=== PATIENT | male | born 1975 | race Caucasian/White ===

== ENCOUNTER 2016-10-07 15:12 | Emergency (ER) | payer OTHER ==
--- NOTE | 2016-10-07 18:50 | REPUSA ---
CLINICAL HISTORY: Pain. COMMENTS: Real time sonography with duplex doppler of the left lower extremity was performed with attention to the major deep venous structures. Evaluation reveals the left common femoral, superficial femoral and popliteal veins to be completely compressible without intraluminal thrombus. There is normal spontaneous phasic flow and augmentation. The greater saphenous/common femoral vein junction is patent. IMPRESSION: No evidence of DVT in left lower extremity.. Thank you for your kind referral of this patient.
--- NOTE | 2016-10-07 19:17 | EDDOCDS ---
Nurse's Notes [facility] Name: Arcadio Le Age: 41 yrs Sex: Male : 1975 Arrival Date: 10/07/2016 Time: 15:12 Bed PR Private MD: [facility] - Adults Diagnosis: Pain in left lower leg;Acute upper respiratory infection, unspecified Presentation: 10/07 15:27 Presenting complaint: Patient states: tweaked his back 3 weeks ago now having pain down kpj left leg, also cold symptoms. Adult Sepsis Screening: The patient does not have new or worsening altered mentation. Patient's respiratory rate is less than 22. Systolic blood pressure is greater than 100. Patient has a qSOFA score of 0- Negative Sepsis Screen. Suicide/Homicide risk assessment- the patient denies having any suicidal and/or homicidal ideations and does not present with any other emotional, behavioral or mental health complaints. Status: Patient is not a track service worker or dependent. Transition of care: patient was not received from another setting of care. 15:27 Acuity: WHIT Level 5 [facility] 15:27 Method Of Arrival: Walkin/Carried/Asstd [facility] Triage Assessment: 15:30 General: Appears in no apparent distress, Behavior is appropriate for age. Pain: kpj Location: left leg Pain currently is 6 out of 10 on a pain scale. Pt Declines HIV testing. Neurological: Level of Consciousness is awake, alert, Oriented to person, place, time. Respiratory: Airway is patent Respiratory effort is even, unlabored, Respiratory pattern is regular, symmetrical. Respiratory: Reports cough that is non-productive. Derm: Skin is pink, warm & dry. Musculoskeletal: Reports pain in left leg Pain is 6 out of 10 on a pain scale. Historical: - Allergies: No known drug Allergies; - Home Meds: 1. Celexa 10 mg Oral tab 1 tab once daily (Last dose: 10/07/2016 10:30) - PMHx: Depression; - PSHx: cyst removed rt eye; 3 right knee surgeries; - Social history: Smoking status: Patient uses tobacco products, light tobacco smoker. No barriers to communication noted, The patient speaks fluent Angolan. - Family history: Not pertinent. - : The pt / caregiver states he / she is not on anticoagulants. Home medication list is obtained from the patient. - Exposure Risk Screening:: None identified. Screenin:14 Screening information is obtained from the patient. Fall risk: No risks identified. cz Assistance ADL's: requires no assistance with activities of daily living. Abuse/DV Screen: The patient / caregiver reports he/she is: not in a situation that causes fear, pain or injury. Nutritional screening: No deficits noted. home support is adequate. Assessment: 19:14 Reassessment: Patient appears in no apparent distress at this time. Patient states cz symptoms have improved. Vital Signs: 15:14 BP 137 / 74; Pulse 95; Resp 18 S; Temp 97.3(O); Pulse Ox 98% on R/A; Weight 123.83 kg gr2 (R); Height 5 ft. 11 in. (180.34 cm) (R); Pain 5/10; 19:11 BP 133 / 86; Pulse 76; Resp 16; Temp 98.5; Pulse Ox 95% on R/A; cz 15:14 Body Mass Index 38.08 (123.83 kg, 180.34 cm) gr2 Vitals: 15:14 Log In Time: October 07, 2016 at 15:14. gr2 ED Course: 15:13 Patient visited by Sol Del Toro. gr2 15:13 Patient moved to Waiting gr2 15:14 NO PRIMARY PHYSICIAN, . is Private Physician. gr2 15:14 [facility] is Private Physician. gr2 15:16 Patient visited by Sol Del Toro. gr2 15:16 Patient moved to Pre E gr2 15:28 Triage Initiated kp 17:06 Patient moved to Triage 1 kp 17:21 Cody Bang PA is PHCP. mo1 17:21 Jose Antonio Tucker MD is Attending Physician. mo1 17:43 Patient visited by Cody Bang PA. mo1 18:01 Patient moved to Ultrasound am17 18:04 Patient moved to Triage 1 am17 18:06 Patient moved to TR3 mdr 18:08 [facility] Payment Agreement was scanned into [employer] and attached to record. gjb 18:57 [facility] is Referral Physician. mo1 18:57 Patient moved to PR1 / 25 mdr 19:14 The patient / caregiver is instructed regarding the plan of care and ED course. cz 19:14 No IV's were initiated during this patient's visit. No procedures done that require cz assistance. Order Results: There are currently no results for this order. Outcome: 18:58 Discharge ordered by Provider. mo1 19:14 Discharge Assessment: Patient awake, alert and oriented x 3. No cognitive and/or cz functional deficits noted. Patient verbalized understanding of disposition instructions. patient administered narcotics - no. The following High Risk Discharge criteria are identified: None. Discharged to home ambulatory. Condition: stable. Discharge instructions given to patient, Instructed on discharge instructions, follow up and referral plans. Demonstrated understanding of instructions, Pt was receptive of discharge instructions/ teaching. No special radiology studies were completed. Property :Personal belongings accompany Pt. 19:16 Patient left the ED. cz Signatures: Lilia Moser, RN RN Marcial Livingston, RN RN cz Sol Del Toro gr2 Cody Bang PA PA mo1 Kylie Albert am17 Antonio Khalil PCA PCA mdr Beck, Gabriela gjb MTDD
--- NOTE | 2016-10-07 19:17 | EDDOCDS ---
Physician Documentation [facility] Name: Arcadio Le Age: 41 yrs Sex: Male : 1975 Arrival Date: 10/07/2016 Time: 15:12 Bed PR Private MD: [facility] - Adults Disposition: 10/07/16 18:58 Discharged to Home/Self Care. Impression: Pain in left lower leg, Acute upper respiratory infection, unspecified. - Condition is Stable. - Discharge Instructions: Leg Cramps, Upper Respiratory Infection, Adult. - Medication Reconciliation, Local Pharmacy Hours form. - Follow up: [facility] - Adults; When: Call to arrange an appointment; Reason: Recheck today's complaints, Continuance of care. - Problem is new. - Symptoms are unchanged. Historical: - Allergies: No known drug Allergies; - Home Meds: 1. Celexa 10 mg Oral tab 1 tab once daily (Last dose: 10/07/2016 10:30) - PMHx: Depression; - PSHx: cyst removed rt eye; 3 right knee surgeries; - Social history: Smoking status: Patient uses tobacco products, light tobacco smoker. No barriers to communication noted, The patient speaks fluent [place]. - Family history: Not pertinent. - : The pt / caregiver states he / she is not on anticoagulants. Home medication list is obtained from the patient. - Exposure Risk Screening:: None identified. Vital Signs: 10/07 15:14 BP 137 / 74; Pulse 95; Resp 18 S; Temp 97.3(O); Pulse Ox 98% on R/A; Weight 123.83 kg / gr2 273 lbs (R); Height 5 ft. 11 in. (180.34 cm) (R); Pain 5/10; 19:11 BP 133 / 86; Pulse 76; Resp 16; Temp 98.5; Pulse Ox 95% on R/A; cz 15:14 Body Mass Index 38.08 (123.83 kg, 180.34 cm) gr2 MDM: 17:45 US Lower Extremity R/O DVT Ordered. EDMS 18:06 Financial registration complete. marcia 18:08 [facility] Payment Agreement was scanned into [employer] and attached to record. alhaji Signatures: Dispatcher [employer] EDHI Lilia Moser RN RN kpj Marcial Garcia, KASANDRA RN Cody Rizvi PA PA mo1 Beck, Gabriela gjb The chart was reviewed and I authenticate all verbal orders and agree with the evaluation and treatment provided.Attachments: 18:08 [facility] Payment Agreement alhaji MTDD
--- NOTE | 2016-10-09 20:18 | EDDOCDS ---
Physician Documentation [facility] Name: Arcadio Le Age: 41 yrs Sex: Male : 1975 Arrival Date: 10/07/2016 Time: 15:12 Bed PR Private MD: [facility] - Adults Disposition: 10/07/16 18:58 Discharged to Home/Self Care. Impression: Pain in left lower leg, Acute upper respiratory infection, unspecified. - Condition is Stable. - Discharge Instructions: Leg Cramps, Upper Respiratory Infection, Adult. - Medication Reconciliation, Local Pharmacy Hours form. - Follow up: [facility] - Adults; When: Call to arrange an appointment; Reason: Recheck today's complaints, Continuance of care. - Problem is new. - Symptoms are unchanged. Historical: - Allergies: No known drug Allergies; - Home Meds: 1. Celexa 10 mg Oral tab 1 tab once daily (Last dose: 10/07/2016 10:30) - PMHx: Depression; - PSHx: cyst removed rt eye; 3 right knee surgeries; - Social history: Smoking status: Patient uses tobacco products, light tobacco smoker. No barriers to communication noted, The patient speaks fluent Croatian. - Family history: Not pertinent. - : The pt / caregiver states he / she is not on anticoagulants. Home medication list is obtained from the patient. - Exposure Risk Screening:: None identified. Vital Signs: 10/07 15:14 BP 137 / 74; Pulse 95; Resp 18 S; Temp 97.3(O); Pulse Ox 98% on R/A; Weight 123.83 kg / gr2 273 lbs (R); Height 5 ft. 11 in. (180.34 cm) (R); Pain 5/10; 19:11 BP 133 / 86; Pulse 76; Resp 16; Temp 98.5; Pulse Ox 95% on R/A; cz 15:14 Body Mass Index 38.08 (123.83 kg, 180.34 cm) gr2 MDM: 17:45 US Lower Extremity R/O DVT Ordered. EDMS 18:06 Financial registration complete. marcia 18:08 [facility] Payment Agreement was scanned into [employer] and attached to record. marcia 10/08 12:03 T-Sheet-- Draft Copy was scanned into [employer] and attached to record. gb 12:03 Radiology Report was scanned into [employer] and attached to record. gb Signatures: Dispatcher [employer] EDLilia Mitchell RN RN Marcial Livingston RN RN cz Barnhardt, Gloria, Reg Reg gb Cody Bang, MAIRA PA mo1 Chapis Lauren gjb The chart was reviewed and I authenticate all verbal orders and agree with the evaluation and treatment provided.Attachments: 10/07 18:08 [facility] Payment Agreement gjb 10/08 12:03 T-Sheet-- Draft Copy gb Chart Complete MTDD
--- NOTE | 2016-10-09 20:18 | EDDOCDS ---
Physician Documentation [facility] Name: Arcadio Le Age: 41 yrs Sex: Male : 1975 Arrival Date: 10/07/2016 Time: 15:12 Bed PR Private MD: [facility] - Adults Disposition: 10/07/16 18:58 Discharged to Home/Self Care. Impression: Pain in left lower leg, Acute upper respiratory infection, unspecified. - Condition is Stable. - Discharge Instructions: Leg Cramps, Upper Respiratory Infection, Adult. - Medication Reconciliation, Local Pharmacy Hours form. - Follow up: [facility] - Adults; When: Call to arrange an appointment; Reason: Recheck today's complaints, Continuance of care. - Problem is new. - Symptoms are unchanged. Historical: - Allergies: No known drug Allergies; - Home Meds: 1. Celexa 10 mg Oral tab 1 tab once daily (Last dose: 10/07/2016 10:30) - PMHx: Depression; - PSHx: cyst removed rt eye; 3 right knee surgeries; - Social history: Smoking status: Patient uses tobacco products, light tobacco smoker. No barriers to communication noted, The patient speaks fluent Spanish. - Family history: Not pertinent. - : The pt / caregiver states he / she is not on anticoagulants. Home medication list is obtained from the patient. - Exposure Risk Screening:: None identified. Vital Signs: 10/07 15:14 BP 137 / 74; Pulse 95; Resp 18 S; Temp 97.3(O); Pulse Ox 98% on R/A; Weight 123.83 kg / gr2 273 lbs (R); Height 5 ft. 11 in. (180.34 cm) (R); Pain 5/10; 19:11 BP 133 / 86; Pulse 76; Resp 16; Temp 98.5; Pulse Ox 95% on R/A; cz 15:14 Body Mass Index 38.08 (123.83 kg, 180.34 cm) gr2 MDM: 17:45 US Lower Extremity R/O DVT Ordered. EDMS 18:06 Financial registration complete. marcia 18:08 [facility] Payment Agreement was scanned into [employer] and attached to record. marcia 10/08 12:03 T-Sheet-- Draft Copy was scanned into [employer] and attached to record. gb 12:03 Radiology Report was scanned into [employer] and attached to record. gb Signatures: Dispatcher [employer] EDLilia Mitchell RN RN Marcial Livingston RN RN cz Barnhardt, Gloria, Reg Reg gb Cody Bang, MAIRA PA mo1 Chapis Lauren gjb The chart was reviewed and I authenticate all verbal orders and agree with the evaluation and treatment provided.Attachments: 10/07 18:08 [facility] [place] [facility] Payment Agreement gjb 10/08 12:03 T-Sheet-- Draft Copy gb Chart Complete MTDD
--- NOTE | 2016-10-09 20:18 | EDDOCDS ---
Nurse's Notes [facility] Name: Arcadio Le Age: 41 yrs Sex: Male : 1975 Arrival Date: 10/07/2016 Time: 15:12 Bed PR Private MD: [facility] - Adults Diagnosis: Pain in left lower leg;Acute upper respiratory infection, unspecified Presentation: 10/07 15:27 Presenting complaint: Patient states: tweaked his back 3 weeks ago now having pain down kpj left leg, also cold symptoms. Adult Sepsis Screening: The patient does not have new or worsening altered mentation. Patient's respiratory rate is less than 22. Systolic blood pressure is greater than 100. Patient has a qSOFA score of 0- Negative Sepsis Screen. Suicide/Homicide risk assessment- the patient denies having any suicidal and/or homicidal ideations and does not present with any other emotional, behavioral or mental health complaints. 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 Transition of care: patient was not received from another setting of care. 15:27 Acuity: WHIT Level 5 [facility] 15:27 Method Of Arrival: Walkin/Carried/Asstd [facility] Triage Assessment: 15:30 General: Appears in no apparent distress, Behavior is appropriate for age. Pain: kpj Location: left leg Pain currently is 6 out of 10 on a pain scale. Pt Declines HIV testing. Neurological: Level of Consciousness is awake, alert, Oriented to person, place, time. Respiratory: Airway is patent Respiratory effort is even, unlabored, Respiratory pattern is regular, symmetrical. Respiratory: Reports cough that is non-productive. Derm: Skin is pink, warm & dry. Musculoskeletal: Reports pain in left leg Pain is 6 out of 10 on a pain scale. Historical: - Allergies: No known drug Allergies; - Home Meds: 1. Celexa 10 mg Oral tab 1 tab once daily (Last dose: 10/07/2016 10:30) - PMHx: Depression; - PSHx: cyst removed rt eye; 3 right knee surgeries; - Social history: Smoking status: Patient uses tobacco products, light tobacco smoker. No barriers to communication noted, The patient speaks fluent Albanian. - Family history: Not pertinent. - : The pt / caregiver states he / she is not on anticoagulants. Home medication list is obtained from the patient. - Exposure Risk Screening:: None identified. Screenin:14 Screening information is obtained from the patient. Fall risk: No risks identified. cz Assistance ADL's: requires no assistance with activities of daily living. Abuse/DV Screen: The patient / caregiver reports he/she is: not in a situation that causes fear, pain or injury. Nutritional screening: No deficits noted. home support is adequate. Assessment: 19:14 Reassessment: Patient appears in no apparent distress at this time. Patient states cz symptoms have improved. Vital Signs: 15:14 BP 137 / 74; Pulse 95; Resp 18 S; Temp 97.3(O); Pulse Ox 98% on R/A; Weight 123.83 kg gr2 (R); Height 5 ft. 11 in. (180.34 cm) (R); Pain 5/10; 19:11 BP 133 / 86; Pulse 76; Resp 16; Temp 98.5; Pulse Ox 95% on R/A; cz 15:14 Body Mass Index 38.08 (123.83 kg, 180.34 cm) gr2 Vitals: 15:14 Log In Time: October 07, 2016 at 15:14. gr2 ED Course: 15:13 Patient visited by Sol Del Toro. gr2 15:13 Patient moved to Waiting gr2 15:14 NO PRIMARY PHYSICIAN, . is Private Physician. gr2 15:14 [facility] is Private Physician. gr2 15:16 Patient visited by Sol Del Toro. gr2 15:16 Patient moved to Pre E gr2 15:28 Triage Initiated kp 17:06 Patient moved to Triage 1 kp 17:21 Cody Bang PA is PHCP. mo1 17:21 Jose Antonio Tucker MD is Attending Physician. mo1 17:43 Patient visited by Cody Bang PA. mo1 18:01 Patient moved to Ultrasound am17 18:04 Patient moved to Triage 1 am17 18:06 Patient moved to TR3 mdr 18:08 [facility] Payment Agreement was scanned into [employer] and attached to record. gjb 18:57 [facility] is Referral Physician. mo1 18:57 Patient moved to PR1 / 25 mdr 19:14 The patient / caregiver is instructed regarding the plan of care and ED course. cz 19:14 No IV's were initiated during this patient's visit. No procedures done that require cz assistance. 19:17 US Lower Extremity R/O DVT Returned. EDAR 10/08 12:03 T-Sheet-- Draft Copy was scanned into [employer] and attached to record. gb 12:03 Radiology Report was scanned into [employer] and attached to record. gb Order Results: Radiology Order: US Lower Extremity R/O DVT Test: US Lower Extremity R/O DVT REASON FOR EXAMINATION: r/o DVT, left posterior thigh; ; CLINICAL HISTORY: Pain.; COMMENTS:; Real time sonography with duplex doppler of the left lower extremity was performed with attention to; the major deep venous structures.; Evaluation reveals the left common femoral, superficial femoral and popliteal veins to be completely; compressible without intraluminal thrombus. There is normal spontaneous phasic flow and augmentation.; The greater saphenous/common femoral vein junction is patent.; IMPRESSION:; No evidence of DVT in left lower extremity..; Thank you for your kind referral of this patient.; ; Outcome: 10/07 18:58 Discharge ordered by Provider. mo1 19:14 Discharge Assessment: Patient awake, alert and oriented x 3. No cognitive and/or cz functional deficits noted. Patient verbalized understanding of disposition instructions. patient administered narcotics - no. The following High Risk Discharge criteria are identified: None. Discharged to home ambulatory. Condition: stable. Discharge instructions given to patient, Instructed on discharge instructions, follow up and referral plans. Demonstrated understanding of instructions, Pt was receptive of discharge instructions/ teaching. No special radiology studies were completed. Property :Personal belongings accompany Pt. 19:16 Patient left the ED. cz Signatures: Dispatcher [employer] EDAR Lilia Moser RN RN Marcial Livingston RN RN cz Rosio Sharma, Reg Reg Sol Montalvo gr2 Cody Bang PA PA mo1 Kylie Albert am17 Antonio Khalil, RICHA PAYMENT MANAGER Chapis Lucas Chart Complete MTDD
== END 2016-10-07 19:16 | disposition home or self-care (01) ==
LOC: M ED 15:12
DX: S86.902A Unspecified injury of unspecified muscle(s) and tendon(s) at lower leg level, left leg, initial encounter (principal); X58.XXXA Exposure to other specified factors, initial encounter; Y92.89 Other specified places as the place of occurrence of the external cause; Y93.89 Activity, other specified; Y99.8 Other external cause status; J06.9 Acute upper respiratory infection, unspecified; F32.9 Major depressive disorder, single episode, unspecified; Z79.899 Other long term (current) drug therapy; F17.210 Nicotine dependence, cigarettes, uncomplicated

== ENCOUNTER → 2018-06-09 | Outpatient (REF) | payer OTHER ==
[2018-06-09 16:20] LABS: BASO # 0.1 10^3/uL (0.0-0.2); BASO % 0.8 % (0.0-1.0); EOS # 0.6 10^3/uL (0.0-0.50); EOS % 6.8 % (0.0-3.0); HEMATOCRIT 45.9 % (42.0-52.0); HEMOGLOBIN 15.3 g/dl (13.5-17.5); IMMATURE GRANULOCYTE % 0.2 % (0-3.0); LYMPH # 2.7 10^3/uL (1.5-4.5); LYMPH % 29.7 % (24.0-44.0); MEAN CORPUSCULAR HEMOGLOBIN 31.5 pg (27.0-33.0); MEAN CORPUSCULAR HGB CONC 33.3 g/dl (32.0-36.5); MEAN CORPUSCULAR VOLUME 94.6 fl (80.0-96.0); MONO # 0.8 10^3/uL (0.0-0.8); NEUTROPHILS # 4.9 10^3/uL (1.8-7.7); NEUTROPHILS % 53.5 % (36.0-66.0); PLATELET COUNT, AUTOMATED 294 10^3/uL (150-450); RED BLOOD COUNT 4.85 10^6/uL (4.30-6.10); RED CELL DISTRIBUTION WIDTH 13.4 % (11.5-14.5); WHITE BLOOD COUNT 9.1 10^3/uL (4.0-10.0)
[2018-06-09 16:43] LABS: ALBUMIN/GLOBULIN RATIO 1.21 (1.00-1.93); ALKALINE PHOSPHATASE 60 U/L (45-117); ALT/SGPT 31 U/L (12-78); ANION GAP 6 MEQ/L (8-16); AST/SGOT 15 U/L (7-37); BILIRUBIN,TOTAL 0.3 MG/DL (0.2-1.0); BLOOD UREA NITROGEN 14 MG/DL (7-18); CALCIUM LEVEL 8.5 MG/DL (8.5-10.1); CARBON DIOXIDE LEVEL 27 MEQ/L (21-32); CHLORIDE LEVEL 106 MEQ/L (98-107); CHOLESTEROL LEVEL 197 MG/DL (<200); CHOLESTEROL RISK RATIO 5.969 (<5); CREATININE FOR GFR 0.92 MG/DL (0.70-1.30); GLOMERULAR FILTRATION RATE > 60.0 (>60); GLUCOSE, FASTING 82 MG/DL (70-100); HDL CHOLESTEROL 33 MG/DL (>40); LDL CHOLESTEROL 121 MG/DL (<100); NON-HDL-C 164 MG/DL; POTASSIUM SERUM 4.7 MEQ/L (3.5-5.1); SODIUM LEVEL 139 MEQ/L (136-145); TOTAL PROTEIN 7.3 GM/DL (6.4-8.2); TRIGLYCERIDES LEVEL 214 MG/DL (<150)
== END ==
LOC: M LAB REF 15:51
DX: E78.2 Mixed hyperlipidemia (principal)
CPT/HCPCS: 84443

== ENCOUNTER → 2018-09-12 | Outpatient (CLI) | payer OTHER ==
--- NOTE | 2018-09-12 13:07 | REP ---
Soft-tissue neck x-ray: Single view. History: Difficulty swallowing. Findings: Epiglottis is normal. Retropharyngeal soft tissues are not widened. Glottic and subglottic airway are unremarkable. No significant bony abnormality is seen. Impression: Negative radiographs of the soft tissues of the neck. Electronically Signed by Bernardino Lambert MD 09/12/2018 12:59 P
== END ==
LOC: M RAD 11:16
PROVIDERS: ATTEND Physician Assistant Medical
DX: R13.10 Dysphagia, unspecified (principal)

== ENCOUNTER → 2019-07-04 | Outpatient (CLI) | payer MEDICAID, OTHER ==
[2019-07-06 00:07] LABS: Lyme Disease IgG/IgM Antibodie <0.91 ISR (0.00-0.90); Lyme Disease IgM Ab Quantitati <0.80 index (0.00-0.79)
== END ==
LOC: M LAB 12:33
PROVIDERS: ATTEND Physician Assistant
DX: M25.50 Pain in unspecified joint (principal); R51 Headache

== ENCOUNTER → 2019-07-17 | Outpatient (REF) | payer MEDICAID, OTHER ==
[2019-07-17 12:31] LABS: APPEARANCE, URINE CLEAR (CLEAR); BACTERIA, URINE AUTO NEGATIVE (NEGATIVE); BILIRUBIN, URINE AUTO NEGATIVE (NEGATIVE); BLOOD, URINE BLOOD 1+ (NEGATIVE); COLOR, URINE YELLOW (YELLOW); GLUCOSE, URINE (UA) AUTO NEGATIVE (NEGATIVE); KETONE, URINE AUTO NEGATIVE (NEGATIVE); LEUKOCYTE ESTERASE, URINE AUTO NEGATIVE (NEGATIVE); MUCUS, URINE SMALL (NEGATIVE); NITRITE, URINE AUTO NEGATIVE (NEGATIVE); PROTEIN, URINE AUTO NEGATIVE (NEGATIVE); RBC, URINE AUTO 0 /HPF (0-3); SQUAMOUS EPITHELIAL CELL UR AU 0 /HPF (0-6); UROBILINOGEN, URINE AUTO 0.2 mg/dL (0.0-2.0); WBC, URINE AUTO 1 /HPF (0-3)
[2019-07-17 18:58] LABS: BASO # 0.1 10^3/uL (0.0-0.2); EOS # 0.4 10^3/uL (0.0-0.5); HEMATOCRIT 47.9 % (42.0-52.0); HEMOGLOBIN 15.8 g/dl (13.5-17.5); LYMPH # 2.4 10^3/uL (1.5-5.0); LYMPH % 30.2 % (24.0-44.0); MEAN CORPUSCULAR HEMOGLOBIN 31.5 pg (27.0-33.0); MEAN CORPUSCULAR VOLUME 95.4 fl (80.0-96.0); MONO # 0.6 10^3/uL (0.0-0.8); MONO % 8.1 % (0.0-5.0); NEUTROPHILS # 4.3 10^3/uL (1.5-8.5); NEUTROPHILS % 55.3 % (36.0-66.0); PLATELET COUNT, AUTOMATED 302 10^3/uL (150-450); RED BLOOD COUNT 5.02 10^6/uL (4.30-6.10); WHITE BLOOD COUNT 7.8 10^3/uL (4.0-10.0)
[2019-07-17 19:06] LABS: ALBUMIN 3.9 GM/DL (3.2-5.2); ALT/SGPT 49 U/L (12-78); BILIRUBIN,TOTAL 0.4 MG/DL (0.2-1.0); BLOOD UREA NITROGEN 10 MG/DL (7-18); CARBON DIOXIDE LEVEL 29 MEQ/L (21-32); CHLORIDE LEVEL 107 MEQ/L (98-107); CHOLESTEROL LEVEL 206 MG/DL (<200); CHOLESTEROL RISK RATIO 5.024 (<5); CREATININE FOR GFR 0.99 MG/DL (0.70-1.30); GLOMERULAR FILTRATION RATE > 60.0 (>60); GLUCOSE, FASTING 92 MG/DL (70-100); HDL CHOLESTEROL 41 MG/DL (>40); LDL CHOLESTEROL 119 MG/DL (<100); NON-HDL-C 165 MG/DL; POTASSIUM SERUM 4.2 MEQ/L (3.5-5.1); RHEUMATOID FACTOR QUANT < 10.0 IU/ML (<15.0); SODIUM LEVEL 140 MEQ/L (136-145); THYROID STIMULATING HORMONE 0.843 uIU/ML (0.358-3.740); TOTAL PROTEIN 7.6 GM/DL (6.4-8.2); TRIGLYCERIDES LEVEL 232 MG/DL (<150); URIC ACID 5.6 MG/DL (3.5-7.2)
[2019-07-17 19:08] LABS: FOLATE 10.4 NG/ML; TOTAL 25(OH) VITAMIN D 12.4 NG/ML (30.0-100.0); VITAMIN B12 LEVEL 355 PG/ML
[2019-07-17 19:45] LABS: HEMOGLOBIN A1c 5.7 %
[2019-07-19 14:16] LABS: ANTINUCLEAR ANTIBODIES DIRECT Negative (Negative)
== END ==
LOC: M LAB REF 11:59
PROVIDERS: ATTEND Nurse Practitioner Family
DX: Z13.9 Encounter for screening, unspecified (principal); E78.2 Mixed hyperlipidemia; M25.50 Pain in unspecified joint

== ENCOUNTER → 2019-10-04 | Outpatient (REF) | payer OTHER ==
[2019-10-04 19:05] LABS: INFLUENZA A AMPLIFICATION NEGATIVE (NEGATIVE); INFLUENZA B AMPLIFICATION NEGATIVE (NEGATIVE)
== END ==
LOC: M LAB REF 16:17
PROVIDERS: ATTEND Physician Assistant
DX: J11.1 Influenza due to unidentified influenza virus with other respiratory manifestations (principal)

== ENCOUNTER → 2019-12-11 | Outpatient (REF) | payer OTHER ==
[2019-12-11 13:24] LABS: CHOLESTEROL RISK RATIO 6.054 (<5)
[2019-12-11 13:31] LABS: TOTAL 25(OH) VITAMIN D 27.4 NG/ML (30.0-100.0)
[2019-12-11 13:39] LABS: HEMOGLOBIN A1c 6.2 %
== END ==
LOC: M LAB REF 12:08
PROVIDERS: ATTEND Nurse Practitioner Family
DX: E78.5 Hyperlipidemia, unspecified (principal); R73.03 Prediabetes; E55.9 Vitamin D deficiency, unspecified

== ENCOUNTER → 2020-08-19 | Outpatient (REF) | payer OTHER, MEDICAID ==
[2020-08-19 12:11] LABS: BASO # 0.1 10^3/uL (0.0-0.2); BASO % 0.9 % (0.0-1.0); EOS # 0.6 10^3/uL (0.0-0.5); EOS % 5.8 % (0.0-3.0); HEMATOCRIT 47.2 % (42.0-52.0); HEMOGLOBIN 15.7 g/dl (13.5-17.5); LYMPH # 3.1 10^3/uL (1.5-5.0); LYMPH % 32.1 % (24.0-44.0); MEAN CORPUSCULAR HEMOGLOBIN 31.2 pg (27.0-33.0); MEAN CORPUSCULAR HGB CONC 33.3 g/dl (32.0-36.5); MEAN CORPUSCULAR VOLUME 93.7 fl (80.0-96.0); MONO % 9.9 % (0.0-5.0); NEUTROPHILS % 51.2 % (36.0-66.0); PLATELET COUNT, AUTOMATED 343 10^3/uL (150-450); RED BLOOD COUNT 5.04 10^6/uL (4.30-6.10); WHITE BLOOD COUNT 9.7 10^3/uL (4.0-10.0)
[2020-08-19 12:43] LABS: ALT/SGPT 40 U/L (12-78); BILIRUBIN,TOTAL 0.4 MG/DL (0.2-1.0); BLOOD UREA NITROGEN 19 MG/DL (7-18); CARBON DIOXIDE LEVEL 28 MEQ/L (21-32); CHLORIDE LEVEL 105 MEQ/L (98-107); CHOLESTEROL LEVEL 203 MG/DL (<200); CHOLESTEROL RISK RATIO 6.151 (<5); CREATININE FOR GFR 1.08 MG/DL (0.70-1.30); GLOMERULAR FILTRATION RATE > 60.0 (>60); GLUCOSE, FASTING 96 MG/DL (70-100); HDL CHOLESTEROL 33 MG/DL (>40); LDL CHOLESTEROL 135 MG/DL (<100); NON-HDL-C 170 MG/DL; POTASSIUM SERUM 4.7 MEQ/L (3.5-5.1); SODIUM LEVEL 138 MEQ/L (136-145); TOTAL PROTEIN 7.2 GM/DL (6.4-8.2); TRIGLYCERIDES LEVEL 175 MG/DL (<150)
== END ==
LOC: M LAB REF 11:18
PROVIDERS: ATTEND Nurse Practitioner Family
DX: E78.5 Hyperlipidemia, unspecified (principal); E78.2 Mixed hyperlipidemia; E66.9 Obesity, unspecified; R73.03 Prediabetes; Z13.9 Encounter for screening, unspecified

== ENCOUNTER 2020-09-05 19:18 | Emergency (ER) | payer MEDICAID, OTHER ==
[~2020-09-05] VITALS: Ht 180.3 cm; Wt 127.9 kg
[2020-09-05 20:24] LABS: BASO # 0.1 10^3/uL (0.0-0.2); BASO % 0.7 % (0.0-1.0); EOS # 0.5 10^3/uL (0.0-0.5); EOS % 5.1 % (0.0-3.0); HEMATOCRIT 48.1 % (42.0-52.0); HEMOGLOBIN 15.9 g/dl (13.5-17.5); LYMPH # 3.2 10^3/uL (1.5-5.0); MEAN CORPUSCULAR HEMOGLOBIN 30.8 pg (27.0-33.0); MEAN CORPUSCULAR HGB CONC 33.1 g/dl (32.0-36.5); MEAN CORPUSCULAR VOLUME 93.2 fl (80.0-96.0); MONO # 0.9 10^3/uL (0.0-0.8); MONO % 8.7 % (0.0-5.0); NEUTROPHILS # 5.8 10^3/uL (1.5-8.5); NEUTROPHILS % 55.3 % (36.0-66.0); PLATELET COUNT, AUTOMATED 309 10^3/uL (150-450); RED BLOOD COUNT 5.16 10^6/uL (4.30-6.10); WHITE BLOOD COUNT 10.5 10^3/uL (4.0-10.0)
[2020-09-05 20:48] LABS: BLOOD UREA NITROGEN 15 MG/DL (7-18); CALCIUM LEVEL 9.5 MG/DL (8.5-10.1); CARBON DIOXIDE LEVEL 28 MEQ/L (21-32); CHLORIDE LEVEL 106 MEQ/L (98-107); CREATININE FOR GFR 1.05 MG/DL (0.70-1.30); GLOMERULAR FILTRATION RATE > 60.0 (>60); GLUCOSE, FASTING 97 MG/DL (70-100); POTASSIUM SERUM 4.3 MEQ/L (3.5-5.1); SODIUM LEVEL 138 MEQ/L (136-145)
[2020-09-05 21:47] LABS: ALBUMIN 4.2 GM/DL (3.2-5.2); ALT/SGPT 48 U/L (12-78); BILIRUBIN,DIRECT 0.1 MG/DL (0.0-0.2); BILIRUBIN,TOTAL 0.3 MG/DL (0.2-1.0); TOTAL PROTEIN 7.9 GM/DL (6.4-8.2)
[2020-09-05] MEDS ORDERED: BACT800T5 PO (22:14)
[2020-09-05 22:31] VITALS: BP 129/74
== END 2020-09-05 22:36 | disposition home or self-care (01) ==
LOC: M ED 19:18
DX: S31.20XA Unspecified open wound of penis, initial encounter (principal); N48.22 Cellulitis of corpus cavernosum and penis; F17.200 Nicotine dependence, unspecified, uncomplicated; Y92.9 Unspecified place or not applicable; Y93.9 Activity, unspecified; Y99.9 Unspecified external cause status; Z86.14 Personal history of Methicillin resistant Staphylococcus aureus infection; Z88.1 Allergy status to other antibiotic agents

== ENCOUNTER 2024-07-06 08:59 | Emergency (ER) | payer BC, OTHER ==
[~2024-07-06] VITALS: Ht 177.8 cm; Wt 119.2 kg
[~2024-07-06 08:59] MED LIST: BACT800T5 PO
[2024-07-06] MEDS: ONDANSETRON 4MG 2ML VIAL IV ONE (10:00)
[2024-07-06] MEDS: KETOROLAC 30 MG/ML 1ML VIAL IV ONE (10:00)
[2024-07-06 10:29] LABS: BASO # 0.1 10^3/uL (0.0-0.2); BASO % 1.1 % (0.0-1.0); EOS # 0.3 10^3/uL (0.0-0.5); EOS % 3.1 % (0.0-3.0); HEMATOCRIT 45.6 % (42.0-52.0); HEMOGLOBIN 15.4 g/dl (13.5-17.5); LYMPH % 23.8 % (24.0-44.0); MEAN CORPUSCULAR HGB CONC 33.8 g/dl (32.0-36.5); MEAN CORPUSCULAR VOLUME 91.8 fl (80.0-96.0); MONO # 0.7 10^3/uL (0.0-0.8); MONO % 8.2 % (2.0-8.0); NEUTROPHILS # 5.2 10^3/uL (1.5-8.5); NEUTROPHILS % 63.6 % (36.0-66.0); PLATELET COUNT, AUTOMATED 310 10^3/uL (150-450); RED BLOOD COUNT 4.97 10^6/uL (4.30-6.10); WHITE BLOOD COUNT 8.2 10^3/uL (4.0-10.0)
[2024-07-06 11:03] LABS: ALBUMIN 4.2 G/DL (3.2-5.2); BILIRUBIN,DIRECT 0.2 MG/DL (<0.4); BILIRUBIN,TOTAL 0.7 MG/DL (0.3-1.2); TOTAL PROTEIN 8.1 G/DL (5.7-8.2)
[2024-07-06] MEDS ORDERED: ONDA-282 PO (12:04)
[2024-07-06 12:11] VITALS: BP 144/65; TEMP 98.7; O2SAT 99
== END 2024-07-06 12:12 | disposition home or self-care (01) ==
LOC: M ED 08:59
DX: R11.2 Nausea with vomiting, unspecified (principal); M54.50 Low back pain, unspecified; F32.A Depression, unspecified; F12.10 Cannabis abuse, uncomplicated; Z88.1 Allergy status to other antibiotic agents; Z79.83 Long term (current) use of bisphosphonates
CPT/HCPCS: 74176; 80047; 80076; 81001; 83690; 85025; 87486; 87581; 87633; 87798; 93041; 96374; 99284; J1885; J2405

== ENCOUNTER 2024-10-01 08:36 | Emergency (ER) | payer BC ==
[~2024-10-01] VITALS: Ht 180.3 cm; Wt 123.2 kg
[~2024-10-01 08:36] MED LIST changes: +ONDA-282 PO
[2024-10-01 09:26] LABS: BASO # 0.1 10^3/uL (0.0-0.2); BASO % 0.7 % (0.0-1.0); EOS # 0.5 10^3/uL (0.0-0.5); EOS % 5.8 % (0.0-3.0); HEMATOCRIT 46.2 % (42.0-52.0); HEMOGLOBIN 15.7 g/dl (13.5-17.5); LYMPH # 1.9 10^3/uL (1.5-5.0); LYMPH % 22.9 % (24.0-44.0); MEAN CORPUSCULAR HEMOGLOBIN 30.8 pg (27.0-33.0); MEAN CORPUSCULAR VOLUME 90.8 fl (80.0-96.0); MONO # 0.6 10^3/uL (0.0-0.8); MONO % 7.1 % (2.0-8.0); NEUTROPHILS # 5.2 10^3/uL (1.5-8.5); NEUTROPHILS % 63.3 % (36.0-66.0); PLATELET COUNT, AUTOMATED 320 10^3/uL (150-450); RED BLOOD COUNT 5.09 10^6/uL (4.30-6.10); WHITE BLOOD COUNT 8.3 10^3/uL (4.0-10.0)
[2024-10-01 09:43] LABS: LIPASE 42 U/L (12-53)
[2024-10-01 09:44] LABS: AMYLASE 79 U/L (30-118)
[2024-10-01 09:45] LABS: ALBUMIN 3.8 G/DL (3.2-5.2); ALKALINE PHOSPHATASE 55 U/L (40-129); ALT/SGPT 35 U/L (7.0-40); AST/SGOT 19 U/L (<34); BILIRUBIN,DIRECT < 0.1 MG/DL (<0.4); BILIRUBIN,TOTAL 0.3 MG/DL (0.3-1.2); BLOOD UREA NITROGEN 14 MG/DL (9-23); CALCIUM LEVEL 8.7 MG/DL (8.5-10.1); CARBON DIOXIDE LEVEL 25 MMOL/L (20-31); CHLORIDE LEVEL 104 MMOL/L (98-107); CREATININE FOR GFR 0.93 MG/DL (0.70-1.30); GLOMERULAR FILTRATION RATE > 60.0 (>60); GLUCOSE, FASTING 116 MG/DL (60-100); POTASSIUM SERUM 4.6 MMOL/L (3.5-5.1); SODIUM LEVEL 139 MMOL/L (136-145); TOTAL PROTEIN 7.2 G/DL (5.7-8.2)
[2024-10-01 13:02] LABS: RSV AMPLIFICATION NEGATIVE (NEGATIVE)
[2024-10-01] MEDS ORDERED: REGL10TA6 PO (13:11)
[2024-10-01] MEDS: METOCLOPRAMIDE 10MG TAB PO ONE (13:17)
[2024-10-01] MEDS ORDERED: ONDA-282 PO (13:18)
[2024-10-01 13:23] VITALS: BP 139/80; TEMP 97.7; O2SAT 98
== END 2024-10-01 13:24 | disposition home or self-care (01) ==
LOC: M ED 08:36
DX: R11.0 Nausea (principal); R53.81 Other malaise; R00.1 Bradycardia, unspecified; E78.5 Hyperlipidemia, unspecified; Z79.83 Long term (current) use of bisphosphonates; Z79.899 Other long term (current) drug therapy; Z88.1 Allergy status to other antibiotic agents

== ENCOUNTER 2024-10-23 11:09 | Day surgery (SDC) | payer BC ==
[~2024-10-23] VITALS: Ht 177.8 cm; Wt 120.8 kg
[~2024-10-23 11:09] MED LIST changes: +REGL10TA6 PO
[2024-10-23] MEDS ORDERED: LIDOCAINE 2% 100MG/5ML SDV (FOR ANES.) As Ordered ONE (11:47)
[2024-10-23] MEDS ORDERED: propofoL 200 MG/20 ML VIAL As Ordered ONE (11:47)
[2024-10-23 13:13] VITALS: TEMP 97.2
[2024-10-23 13:29] VITALS: BP 130/101; O2SAT 97
== END 2024-10-23 13:44 | disposition home or self-care (01) ==
LOC: M OPP 11:09
PROVIDERS: ATTEND Surgery
DX: Z12.11 Encounter for screening for malignant neoplasm of colon (principal); K22.89 Other specified disease of esophagus; K29.70 Gastritis, unspecified, without bleeding; R10.13 Epigastric pain; Z88.8 Allergy status to other drugs, medicaments and biological substances; F17.290 Nicotine dependence, other tobacco product, uncomplicated

== ENCOUNTER → 2024-11-20 | Outpatient (REF) | payer BC ==
[2024-11-20 15:10] LABS: ALBUMIN 3.9 G/DL (3.2-5.2); ALKALINE PHOSPHATASE 59 U/L (40-129); ALT/SGPT 39 U/L (7.0-40); AST/SGOT 18 U/L (<34); BILIRUBIN,TOTAL 0.3 MG/DL (0.3-1.2); BLOOD UREA NITROGEN 12 MG/DL (9-23); CALCIUM LEVEL 8.9 MG/DL (8.5-10.1); CARBON DIOXIDE LEVEL 29 MMOL/L (20-31); CHLORIDE LEVEL 104 MMOL/L (98-107); CHOLESTEROL LEVEL 166 MG/DL (<200); CHOLESTEROL RISK RATIO 2.86 (<5); CREATININE FOR GFR 0.98 MG/DL (0.70-1.30); GLOMERULAR FILTRATION RATE > 60.0 (>60); GLUCOSE, FASTING 96 MG/DL (60-100); LDL CHOLESTEROL 94.4 MG/DL (<100); MAGNESIUM LEVEL 2.3 MG/DL (1.8-2.4); POTASSIUM SERUM 4.8 MMOL/L (3.5-5.1); SODIUM LEVEL 140 MMOL/L (136-145); THYROID STIMULATING HORMONE 0.972 uIU/ML (0.55-4.78); TOTAL PROTEIN 7.4 G/DL (5.7-8.2); TRIGLYCERIDES LEVEL 68 MG/DL (<150)
[2024-11-20 15:26] LABS: HEMOGLOBIN A1c 5.1 % (4.0-6.0)
== END ==
LOC: M LAB REF 12:12
PROVIDERS: ATTEND Nurse Practitioner Family
DX: E55.9 Vitamin D deficiency, unspecified (principal); E66.9 Obesity, unspecified

== ENCOUNTER 2024-12-06 07:23 | Day surgery (SDC) | payer BC ==
[~2024-12-06] VITALS: Ht 180.3 cm; Wt 124.7 kg
[~2024-12-06 07:23] MED LIST changes: +ERGO500029 PO; +LIDOCAINE 2% 100MG/5ML SDV (FOR ANES.) As Ordered ONE; +OMEP-173 PO; +propofoL 200 MG/20 ML VIAL As Ordered ONE
[2024-12-06 09:00] VITALS: BP 127/79; TEMP 98.4; O2SAT 98
== END 2024-12-06 09:12 | disposition home or self-care (01) ==
LOC: M OPP 07:23
PROVIDERS: ATTEND Surgery
DX: Z12.11 Encounter for screening for malignant neoplasm of colon (principal); K63.5 Polyp of colon; K64.0 First degree hemorrhoids; Z88.8 Allergy status to other drugs, medicaments and biological substances; Z79.899 Other long term (current) drug therapy; Z87.891 Personal history of nicotine dependence

== ENCOUNTER 2025-03-12 14:36 | Emergency (ER) | payer BC, OTHER ==
[~2025-03-12] VITALS: Ht 180.3 cm; Wt 126.8 kg
[~2025-03-12 14:36] MED LIST changes: -LIDOCAINE 2% 100MG/5ML SDV (FOR ANES.) As Ordered ONE; -propofoL 200 MG/20 ML VIAL As Ordered ONE
[2025-03-12] MEDS: KETOROLAC 30 MG/ML 1 ML VIAL IM ONE (16:52)
[2025-03-12] MEDS: METOCLOPRAMIDE 10 MG TAB PO ONE (16:52)
[2025-03-12] MEDS: KETOROLAC 30 MG/ML 1 ML VIAL IV ONE (16:56)
[2025-03-12 17:04] LABS: BASO # 0.1 10^3/uL (0.0-0.2); BASO % 0.9 % (0.0-1.0); EOS # 0.5 10^3/uL (0.0-0.5); EOS % 5.2 % (0.0-3.0); LYMPH # 2.4 10^3/uL (1.5-5.0); LYMPH % 23.1 % (24.0-44.0); MONO # 0.7 10^3/uL (0.0-0.8); MONO % 6.7 % (2.0-8.0); NEUTROPHILS # 6.6 10^3/uL (1.5-8.5); NEUTROPHILS % 63.7 % (36.0-66.0); PLATELET COUNT, AUTOMATED 336 10^3/uL (150-450)
[2025-03-12 17:29] VITALS: BP 133/84; TEMP 98.8; O2SAT 98
[2025-03-12 17:34] LABS: ALT/SGPT 47.0 U/L (7.0-40); AST/SGOT 30.0 U/L (<34)
[2025-03-12] MEDS ORDERED: METH-1164 PO (18:28)
[2025-03-12] MEDS ORDERED: IBUP-1022 PO (18:28)
== END 2025-03-12 18:36 | disposition home or self-care (01) ==
LOC: M ED 14:36
DX: R11.2 Nausea with vomiting, unspecified (principal); M54.50 Low back pain, unspecified; Z88.1 Allergy status to other antibiotic agents; Z79.1 Long term (current) use of non-steroidal anti-inflammatories (NSAID); Z79.899 Other long term (current) drug therapy
CPT/HCPCS: 80047; 80076; 83690; 85025; 96374; 99284; J1885